=== PATIENT | female | born 1950 | race Two or more races ===

== ENCOUNTER 2021-11-24 08:06 | Day surgery (SDC) | payer OTHER, MEDICAID ==
[~2021-11-24] VITALS: Ht 154.9 cm; Wt 61.2 kg
[~2021-11-24 08:06] MED LIST: ASPI325T4 PO; CHOL20007 OR; EZET10TA22 PO; GLIP5TAB12 PO; METF-929 PO; NITR0.4S29 SL; PRAV20TA3 PO
[2021-11-24] MEDS ORDERED: LIDOCAINE 2%HCL (LOCAL ANESTH.) INJ 10ml MDV ONE (09:30)
[2021-11-24] MEDS ORDERED: IODIXANOL 320MG/ML 100ML BTL IV ONE (09:30)
[2021-11-24] MEDS ORDERED: ANGIOMAX 250 MG VIAL IV ONE (09:34)
[2021-11-24] MEDS ORDERED: HEPARIN SODIUM (PORCINE) 5000 UNITS/ML 1ML VIAL ONE (09:34)
[2021-11-24] MEDS ORDERED: SODIUM CHL 0.9% 0 ML ONE (09:35)
[2021-11-24] MEDS ORDERED: MIDAZOLAM HCL 2MG/2ML 2ml VIAL (1mg/ml) ONE (09:35)
[2021-11-24] MEDS ORDERED: VERAPAMIL 2.5MG/ML INJ 2ML VIAL IV ONE (09:35)
[2021-11-24] MEDS ORDERED: fentaNYL CITRATE 100 MCG/2 ML VL ONE (09:35)
== END 2021-11-24 12:24 | disposition home or self-care (01) ==
LOC: CATH 08:06
PROVIDERS: ATTEND Internal Medicine
DX: R94.39 Abnormal result of other cardiovascular function study (principal); I44.7 Left bundle-branch block, unspecified; E11.9 Type 2 diabetes mellitus without complications; E78.00 Pure hypercholesterolemia, unspecified; Z98.890 Other specified postprocedural states; Z85.3 Personal history of malignant neoplasm of breast; Z79.899 Other long term (current) drug therapy; Z20.822 Contact with and (suspected) exposure to COVID-19
CPT/HCPCS: 93458; C1769; C1887; C1894; J1644; J2001; J2250; J3010; J7030; Q9967; U0003; 99152